=== PATIENT | male | born 1975 | race Caucasian/White ===

== ENCOUNTER 2024-04-06 13:46 | Inpatient (IN) | payer OTHER ==
[2024-04-06] MEDS ORDERED: VANCOMYCIN 1,000 MG VIAL (RESTRICTED TO ID ONLY) ONE (14:20)
[2024-04-06] MEDS ORDERED: PIPERACILLIN/TAZOBACTAM 3.375 GM VIAL IVPB ONE (14:20)
[2024-04-06] MEDS: CLINDAMYCIN 900 MG PREMIX IVPB 900 MG/50 ML BAG IVPB ONE (14:40)
[2024-04-06] MEDS: PIPERACILLIN/TAZOB 3.375 GM 3.375 GM in DEXTROSE 5%-WATER - 50 ML IVPB ONE (15:00)
[2024-04-06] MEDS: AMPICILLIN - 1 GM in SODIUM CHLORIDE 100 ML IVPB ONE (15:00)
[2024-04-06 15:08] LABS: INR 0.9 (0.83-1.09); PROTHROMBIN TIME (PATIENT) 10.3 SEC (9.7-13.0)
[2024-04-06 15:11] LABS: ACTIVATED PTT 34.8 SECONDS (25.2-36.5)
[2024-04-06 15:12] LABS: HEMATOCRIT 49.5 % (35.4-49); HEMOGLOBIN 16.3 G/dL (11.7-16.9); MCH 29.8 pg (25.7-33.7); MCHC 32.9 g/dl (32.0-35.9); MEAN CELL VOLUME 90.4 fl (80-96); MEAN PLT VOLUME 7.8 fl (7.5-11.1); PLATELET COUNT 325.3 10^3/uL (134-434); RBC 5.48 10^6/uL (4.00-5.60); RDW 14.2 % (11.9-15.9); WHITE BLOOD COUNT 15.2 10^3/uL (4.0-10.8)
[2024-04-06] MEDS: VANCOMYCIN 1,000 MG in DEXTROSE 5%-WATER - 250 ML IVPB ONE (15:23)
[2024-04-06 15:31] LABS: ALBUMIN 5.2 g/dl (3.4-5.0); ALK PHOS 49 U/L (45-117); ANION GAP 9 mmol/L (4-13); BILIRUBIN,TOTAL 0.9 mg/dl (0.2-1); CALCIUM 10.5 mg/dl (8.5-10.1); CHLORIDE 101 mmol/L (98-107); CO2 28 mmol/L (21-32); CREATININE 0.8 mg/dl (0.6-1.3); GLUCOSE,RANDOM 93 mg/dl (74-106); POTASSIUM 3.8 mmol/L (3.5-5.1); SGOT/AST 14 U/L (15-37); SGPT/ALT 13 U/L (7-52); SODIUM 138 mmol/L (136-145); TOT PROT 7.1 g/dl (6.4-8.2)
[2024-04-06 15:37] LABS: PLATELET ESTIMATE ADEQUATE
[2024-04-06 16:06] LABS: ERYTHROCYTE SEDIMENTATION RATE 5 mm/hr (0-10)
[2024-04-06] MEDS: ACETAMINOPHEN 1000 MG/100 ML BAG IVPB ONE (19:03)
[2024-04-06 19:44] VITALS: BMI 22.3
[2024-04-06] MEDS ORDERED: PIPERACILLIN/TAZOB 3.375 GM 3.375 GM in DEXTROSE 5%-WATER - 50 ML IVPB SCH (20:00)
[2024-04-06] MEDS ORDERED: DOCUSATE SODIUM 100 MG CAPSULE (FP) PO PRN (20:01)
[2024-04-06] MEDS: PIPERACILLIN/TAZOB 3.375 GM 3.375 GM in DEXTROSE 5%-WATER - 50 ML IVPB SCH (21:28)
[2024-04-06] MEDS: diphenhydrAMINE HCL 25 MG CAPSULE (FP) PO ONE (22:36)
[2024-04-07] MEDS: KETOROLAC TROMETHAMINE 15 MG/ML VIAL IVPUSH ONE (00:25)
[2024-04-07] MEDS: VANCOMYCIN/WATER 1250 MG 1,250 MG/250 ML BAG IVPB SCH (03:48)
[2024-04-07] MEDS ORDERED: VANCOMYCIN/WATER 1250 MG 1,250 MG/250 ML BAG IVPB SCH (04:00)
[2024-04-07] MEDS: ACETAMINOPHEN 1000 MG/100 ML BAG IVPB PRN (06:15)
[2024-04-07 08:53] LABS: CALCIUM 9.1 mg/dl (8.5-10.1); CREATININE 0.9 mg/dl (0.6-1.3); POTASSIUM 4.2 mmol/L (3.5-5.1)
[2024-04-07] MEDS ORDERED: ACETAMINOPHEN 1000 MG/100 ML BAG IVPB PRN (10:02)
[2024-04-07] MEDS: traMADol HCL 50 MG TABLET PO PRN (10:19)
[2024-04-07 12:05] LABS: BASO % 0.4 % (0-2.0); EOS % 5.6 % (0-4.5); HEMATOCRIT 43.9 % (35.4-49); HEMOGLOBIN 14.2 GM/dL (11.7-16.9); LYMPH % 19.1 % (8-40); MCHC 32.3 g/dl (32.0-35.9); MEAN CELL VOLUME 86.9 fl (80-96); MEAN PLT VOLUME 7.8 fl (7.5-11.1); MONO % 7.3 % (3.8-10.2); NEUT % 67.6 % (42.8-82.8); PLATELET COUNT 353 10^3/uL (134-434); RBC 5.05 M/mm3 (4.00-5.60); RDW 13.4 % (11.9-15.9); WHITE BLOOD COUNT 11.5 K/mm3 (4.0-10.0)
[2024-04-07] MEDS: PIPERACILLIN/TAZOB 4.5 GM 4.5 GM in DEXTROSE 5%-WATER 100 ML IVPB SCH (18:32)
[2024-04-07] MEDS: KETOCONAZOLE 2% CREAM - 60GM TUBE TP SCH (18:34)
[2024-04-07 20:58] VITALS: RESP 18
[2024-04-07] MEDS: diphenhydrAMINE HCL 25 MG CAPSULE (FP) PO ONE (21:11)
[2024-04-08] MEDS ORDERED: ACETAMINOPHEN 325 MG TABLET (FP) PO PRN (01:00)
[2024-04-08] MEDS: VANCOMYCIN/WATER 1250 MG 1,250 MG/250 ML BAG IVPB SCH (03:57)
[2024-04-08 09:28] VITALS: BP 119/67; PULSE 57; TEMP 98.2
[2024-04-08 09:44] LABS: ALBUMIN 4.2 g/dl (3.4-5.0); CALCIUM 9.2 mg/dl (8.5-10.1); CREATININE 0.9 mg/dl (0.6-1.3); POTASSIUM 4.5 mmol/L (3.5-5.1); TOT PROT 5.7 g/dl (6.4-8.2)
[2024-04-08 11:34] LABS: BASO % 0.5 % (0-2.0); EOS % 8.8 % (0-4.5); HEMATOCRIT 44.5 % (35.4-49); HEMOGLOBIN 14.6 GM/dL (11.7-16.9); LYMPH % 28.3 % (8-40); MCH 28.5 pg (25.7-33.7); MCHC 32.8 g/dl (32.0-35.9); MEAN PLT VOLUME 7.8 fl (7.5-11.1); NEUT % 55.4 % (42.8-82.8); PLATELET COUNT 348 10^3/uL (134-434); RBC 5.12 M/mm3 (4.00-5.60); RDW 13.5 % (11.9-15.9); WHITE BLOOD COUNT 9.5 K/mm3 (4.0-10.0)
== END 2024-04-08 11:35 | disposition home or self-care (01) | DRG 383 ==
LOC: FER 13:46 → FM/S 15:54 → OBSVTOIN 20:01
PROVIDERS: ADMIT Internal Medicine
DX: L03.115 Cellulitis of right lower limb (principal); S91.331A Puncture wound without foreign body, right foot, initial encounter; W57.XXXA Bitten or stung by nonvenomous insect and other nonvenomous arthropods, initial encounter; Y93.89 Activity, other specified; Y92.89 Other specified places as the place of occurrence of the external cause; Y99.8 Other external cause status; F17.200 Nicotine dependence, unspecified, uncomplicated
CPT/HCPCS: 0241U-QW; 36415; 73610-TC-RT-FY; 73630-TC-RT-FY; 73700-TC-RT; 80048; 80053; 85025; 85027; 85610; 85651; 85730; 86140; 86850; 86900; 86901; 87040; 99285-25; G0378; J0131